=== PATIENT | male | born 1990 | race Asian ===

== ENCOUNTER 2023-10-19 16:22 | Emergency (ER) | payer MEDICAID ==
[~2023-10-19] VITALS: Ht 193 cm; Wt 153.8 kg
[2023-10-19 16:32] VITALS: BP 130/73; PULSE 78; RESP 18; TEMP 97.3; O2SAT 97
[2023-10-19] MEDS ORDERED: SULF-59 PO (17:34)
[2023-10-19] MEDS ORDERED: CEPH-588 PO (17:34)
[2023-10-19] MEDS ORDERED: IBUP-2213 PO (17:34)
[2023-10-19] MEDS ORDERED: LIDOCAINE MPF 1% 5 ML ONE (18:01)
[2023-10-19] MEDS ORDERED: cefTRIAXone 1,000 MG VIAL ONE (18:01)
[2023-10-19] MEDS: oxyCODONE/APAP 5/325 MG 1 TAB TAB PO ONE (18:09)
[2023-10-19] MEDS: cefTRIAXone 1,000 MG in LIDOCAINE MPF 1% 2.1 ML IM ONE (18:14)
[2023-10-19 18:30] VITALS: BP 135/82; PULSE 75; RESP 18; TEMP 97.7; O2SAT 98
== END 2023-10-19 18:30 | disposition home or self-care (01) ==
LOC: MED 16:22
DX: M79.641 Pain in right hand (principal); Z79.1 Long term (current) use of non-steroidal anti-inflammatories (NSAID); Z79.2 Long term (current) use of antibiotics; Z79.899 Other long term (current) drug therapy
CPT/HCPCS: 29125; 96372; 99283; J0696; J2001

== ENCOUNTER 2024-01-27 00:04 | Emergency (ER) | payer MEDICAID ==
[~2024-01-27] VITALS: Ht 193 cm; Wt 147.4 kg
[~2024-01-27 00:04] MED LIST: CEPH-588 PO; IBUP-2213 PO; SULF-59 PO
[2024-01-27 00:12] VITALS: BP 119/74; PULSE 76; RESP 18; TEMP 97.8; O2SAT 97
[2024-01-27] MEDS: ONDANSETRON 4 MG ODT PO ONE (00:42)
[2024-01-27] MEDS: FAMOTIDINE 20 MG TAB PO ONE (00:42)
[2024-01-27] MEDS ORDERED: IBUP-2213 PO (00:48)
[2024-01-27] MEDS ORDERED: BISM262C53 PO (00:48)
[2024-01-27] MEDS ORDERED: ONDA-188 PO (00:48)
[2024-01-27] MEDS: IBUPROFEN 600 MG TAB PO ONE (00:54)
[2024-01-27 01:10] VITALS: BP 119/74; PULSE 76; RESP 18; TEMP 97.8; O2SAT 97
== END 2024-01-27 01:10 | disposition home or self-care (01) ==
LOC: MED 00:04
DX: K52.9 Noninfective gastroenteritis and colitis, unspecified (principal); Z79.899 Other long term (current) drug therapy
CPT/HCPCS: 99284; Q0162